=== PATIENT | female | born 1995 | race Caucasian/White ===

== ENCOUNTER 2018-05-09 17:51 | Emergency (ER) | payer OTHER, BC ==
--- NOTE | 2018-05-09 19:30 | PDOC ---
History of Present Illness - General History Source: Patient Exam Limitations: No Limitations - History of Present Illness Initial Comments: 05/09/18 20:19 A portion of this note was documented by scribe services under my direction. I have reviewed the details of the note, within reason, and agree with the documentation. The case summary and management plan written by me. Assessment and plan: This is a 22-year-old female who comes in complaining of 3 months of lymphadenopathy in her neck and groin bilateral. Patient also has 1 month history of a lesion of her left lip. On my exam patient did have some small nontender freely mobile lymphadenopathy of the left side of her neck as well as her groin bilateral left side greater than right. Patient has been with her sexual partner 2 years and denies any history of STDs. Denies any pelvic pain, vaginal discharge. Patient on my exam did not have a pharyngitis. Basic labs were sent and patient will be referred to the clinic for further evaluation and follow-up. <Adan Ocasio I - Last Filed: 05/09/18 20:19> - History of Present Illness Initial Comments: This patient is a 22 year old female with no significant PMHx, who presents with painful lymph nodes and left lower lip lesion. Patient states that her pain in her neck and b/l groin began in February. She states that the lesion on her lip began approx. 1 month ago and reports that it sometimes drains clear sticky liquid and at times it drains yellow colored pus. She states that she was seen at urgent care and finished taking Valtrex 2 weeks ago. She also reports headache and lightheadedness intermittently for the past month. She also reports recent night sweats. She states that she is currently menstruating. She states that she has one steady partner and does not use protection. Denies any fever, runny nose, sore throat, chest pain, shortness of breath, abdominal pain, diarrhea, urinary symptoms. Denies any vaginal discharge. Family Hx: Father - lymphoma and diabetes. PCP: none - will refer to [facility] - [address] Allergies: almonds Social Hx: current everyday smoker?? ROS General: No fevers or chills, no weakness, no weight loss. +night sweats. HEENT: No change in vision. No sore throat, No ear pain Cardiovascular: No chest pain or shortness of breath Respiratory:No cough, or wheezing. Gastrointestinal: No nausea, vomiting, diarrhea or constipation, No rectal bleeding Genitourinary: No dysuria, hematuria, or frequency Musculoskeletal: +neck pain. +b/l groin pain. Neurologic: +headache, no lightheadedness. No loss of consciousness Psychiatric: No depression Skin: +left lower lip lesion w/ purulent drainage. Endocrine: No increased thirst or abnormal weight change Allergic: No skin or latex allergy All other systems reviewed and normal PE GENERAL: The patient is awake, alert, and fully oriented, in no acute distress. HEAD: Normal with no signs of trauma. EYES: Pupils equal, round and reactive to light, extraocular movements intact, sclera anicteric, conjunctiva clear. THROAT: Posterior oropharynx - no errythema, no exudate. Left sided lymphadenopathy - non-tender, freely mobile. Anterior cervical chain of right side - no lymphadenopathy. ABDOMEN/PELVIS: No tenderness EXTREMITIES: B/l small, non tender, freely mobile lymph nodes palpable in groin L>R.Normal range of motion, no edema. NEUROLOGICAL: Normal speech, normal gait. PSYCH: Normal mood, normal affect. SKIN: Left lower lip --> raised lesion with some crusting approx. 3 mm in diameter. No swelling, erythema, or increased warmth of lip or facial tissues in the area. <Kirsty Osorio - Last Filed: 05/09/18 20:52> - General Chief Complaint: Wound Stated Complaint: SWOLLEN LYMPH, LEFT LOWER LIP BUMP Time Seen by Provider: 05/09/18 19:29 Past History - Immunization History TDAP Vaccination: Yes Immunization Up to Date: Yes - Suicide/Smoking/Psychosocial Hx Smoking Status: No Smoking History: Current every day smoker Number of Cigarettes Smoked Daily: 5 'Breaking Loose' booklet given: 11/18/14 Hx Alcohol Use: No <Aadn Ocasio I - Last Filed: 05/09/18 20:19> <Kirsty Osorio - Last Filed: 05/09/18 20:52> - Past Medical History Allergies/Adverse Reactions: Allergies Allergy/AdvReac Type Severity Reaction Status Date / Time almonds Allergy Unknown Uncoded 12/05/12 23:36 Home Medications: Ambulatory Orders NK [No Known Home Medication] 12/01/14 Review of Systems - Review of Systems Comments:: see HPI <Kirsty Osorio - Last Filed: 05/09/18 20:52> *Physical Exam - Physical Exam Comments: see HPI <Kirsty Osorio - Last Filed: 05/09/18 20:52> ED Treatment Course - LABORATORY CBC & Chemistry Diagram: 05/09/18 19:40 05/09/18 19:40 <Adan Ocasio I - Last Filed: 05/09/18 20:19> - LABORATORY CBC & Chemistry Diagram: 05/09/18 19:40 05/09/18 19:40 <Kirsty Osorio - Last Filed: 05/09/18 20:52> *DC/Admit/Observation/Transfer - Discharge Dispostion Decision to Admit order: No <Adan Ocasio I - Last Filed: 05/09/18 20:19> - Attestations Scribe Attestion: 05/09/18 19:47 Documentation prepared by Kirsty Osorio, acting as vp medical for Adan Ocasio MD. <Kirsty Osorio - Last Filed: 05/09/18 20:52> Diagnosis at time of Disposition: Lymphadenopathy, Oral mucosal lesion - Discharge Dispostion Disposition: HOME Condition at time of disposition: Stable - Referrals Referrals: Iban Powell MD [Staff Physician] - - Patient Instructions Additional Instructions: You were given a referral to at our clinic. The phone number is the number for the clinic so when you call the phone number get an appointment with any of the doctors that are available to see you. Return to the emergency department immediately with ANY new, persistent or worsening symptoms. Continue any medications as previously prescribed by your physician. You should follow up with your primary doctor as soon as possible regarding today's emergency department visit. . Please make sure your doctor reviews the results of your emergency evaluation. Thank you for coming to the Emergency Department today for your care. It was a pleasure to see you today. Please note that your evaluation is INCOMPLETE until you follow-up with your doctor.
[2018-05-09 20:05] LABS: BASO % 0.7 % (0-2.0); EOS % 1.6 % (0-4.5); HEMOGLOBIN 11.6 GM/dl (10.7-15.3); LYMPH % 42.8 % (8-40); MCH 25.4 pg (25.7-33.7); MCHC 32.1 g/dl (32.0-36.0); MEAN CELL VOLUME 79.2 fl (80-96); MEAN PLT VOLUME 8.3 fl (7.5-11.1); MONO % 9.8 % (3.8-10.2); NEUT % 45.1 % (42.8-82.8); PLATELET COUNT 210 K/MM3 (134-434); RBC 4.55 M/mm3 (3.60-5.2); RDW 13.2 % (11.6-15.6); WHITE BLOOD COUNT 5.1 K/mm3 (4.0-10.8)
[2018-05-09 20:20] LABS: ALBUMIN 4.1 g/dl (3.5-5.0); ALK PHOS 62 U/L (32-92); ANION GAP 8 MMOL/L (8-16); BILIRUBIN,TOTAL 0.4 mg/dl (0.2-1.0); BLOOD UREA NITROGEN 16 mg/dl (7-18); CALCIUM 8.8 mg/dl (8.4-10.2); CHLORIDE 102 mmol/L (98-107); CO2 24 mmol/L (22-28); CREATININE 0.6 mg/dl (0.6-1.3); GLUCOSE,RANDOM 89 mg/dl (74-106); POTASSIUM 3.5 mmol/L (3.5-5.1); SGOT/AST 29 U/L (10-42); SGPT/ALT 29 U/L (10-40); SODIUM 134 mmol/L (136-145); TOT PROT 7.2 g/dl (6.4-8.3)
== END 2018-05-09 20:29 | disposition home or self-care (01) ==
LOC: FER 17:51
DX: R59.1 Generalized enlarged lymph nodes (principal); K13.70 Unspecified lesions of oral mucosa
CPT/HCPCS: 36415; 80053; 85025; 86663; 99281-25

== ENCOUNTER 2021-07-29 04:50 | Day surgery (SDC) | payer OTHER, BC ==
[2021-07-25 10:46] VITALS: BMI 22.3
[2021-07-29 11:50] LABS: BASO % 0.9 % (0-2.0); EOS % 0.8 % (0-4.5); HEMATOCRIT 35.2 % (32.4-45.2); HEMOGLOBIN 11.5 GM/dL (10.7-15.3); LYMPH % 29.3 % (8-40); MCH 26.1 pg (25.7-33.7); MCHC 32.6 g/dl (32.0-36.0); MEAN PLT VOLUME 8.4 fl (7.5-11.1); MONO % 7.6 % (3.8-10.2); NEUT % 61.4 % (42.8-82.8); PLATELET COUNT 177 10^3/uL (134-434); RDW 14.7 % (11.6-15.6); WHITE BLOOD COUNT 3.7 K/mm3 (4.0-10.0)
[2021-07-29 12:00] LABS: INR 1.15 (0.83-1.09); PROTHROMBIN TIME (PATIENT) 13.2 SEC (9.7-13.0)
[2021-07-29 16:41] VITALS: TEMP 98
[2021-07-29 16:45] VITALS: BP 116/64; PULSE 67
[2021-07-29 17:26] LABS: BF GLUCOSE (CSF ONLY) 51 mg/dL (40-70)
[2021-07-29 17:45] LABS: CSF APPEARANCE CLEAR (CLEAR); CSF COLOR COLORLESS (COLORLESS); CSF WBC 0 mm3 (0-5)
== END 2021-07-29 16:15 | disposition home or self-care (01) ==
LOC: JRADIR 04:50
PROVIDERS: ATTEND Psychiatry & Neurology Neurology
PROC: 009U3ZX Drainage of Spinal Canal, Percutaneous Approach, Diagnostic (ICD-10-PCS; principal; 2021-07-29)
DX: R20.2 Paresthesia of skin (principal)
CPT/HCPCS: 36415; 62272; 81025; 82150; 82784; 82787; 82945; 83873; 83916; 84157; 85025; 85610; 87070; 87205

== ENCOUNTER 2022-06-18 15:18 | Emergency (ER) | payer OTHER ==
[2022-06-18 15:37] VITALS: BP 109/70; PULSE 57; RESP 18; TEMP 98.1; BMI 21.9
[2022-06-18] MEDS ORDERED: DIPHTH,PERTUSS(ACELL),TET 0.5 ML DISP.SYRIN IM ONE ×2 (17:35→17:56)
[2022-06-18] MEDS ORDERED: RABIES IMMUNE GLOBULIN 300 UNITS/1 ML VIAL IM ONE (17:35)
[2022-06-18] MEDS ORDERED: RABIES VACCINE (PCEC)/PF 2.5 UNIT/VIAL IM ONE ×2 (17:35→17:56)
[2022-06-18] MEDS ORDERED: RABIES IMMUNE GLOBULIN 300 UNITS/1 ML VIAL ONE (17:55)
== END 2022-06-18 18:59 | disposition home or self-care (01) ==
LOC: JERFT 15:18
PROC: 3E0234Z Introduction of Serum, Toxoid and Vaccine into Muscle, Percutaneous Approach (ICD-10-PCS; principal; 2022-06-18)
PROC: 3E0234Z Introduction of Serum, Toxoid and Vaccine into Muscle, Percutaneous Approach (ICD-10-PCS; 2022-06-18)
DX: S70.312A Abrasion, left thigh, initial encounter (principal); W54.0XXA Bitten by dog, initial encounter
CPT/HCPCS: 90375; 90471; 90675; 90715; 96372; 99284-25

== ENCOUNTER 2022-06-21 14:48 | Emergency (ER) | payer OTHER ==
[2022-06-21 15:05] VITALS: BP 118/52; PULSE 62; RESP 18; TEMP 98.1; BMI 21.9
[2022-06-21] MEDS ORDERED: RABIES VACCINE (PCEC)/PF 2.5 UNIT/VIAL IM ONE ×2 (15:21→15:37)
== END 2022-06-21 15:57 | disposition home or self-care (01) ==
LOC: JERFT 14:48
PROC: 3E0234Z Introduction of Serum, Toxoid and Vaccine into Muscle, Percutaneous Approach (ICD-10-PCS; principal; 2022-06-21)
DX: Z29.14 Encounter for prophylactic rabies immune globulin (principal)
CPT/HCPCS: 90471; 90675; 99284-25

== ENCOUNTER 2022-06-25 15:10 | Emergency (ER) | payer OTHER ==
[2022-06-25 15:59] VITALS: BP 120/68; PULSE 70; RESP 16; BMI 21.9
[2022-06-25] MEDS ORDERED: RABIES VACCINE (PCEC)/PF 2.5 UNIT/VIAL IM ONE ×2 (16:23→16:25)
[2022-06-25 16:46] VITALS: TEMP 98
== END 2022-06-25 16:53 | disposition home or self-care (01) ==
LOC: JERFT 15:10
PROC: 3E023GC Introduction of Other Therapeutic Substance into Muscle, Percutaneous Approach (ICD-10-PCS; principal; 2022-06-25)
DX: S71.152A Open bite, left thigh, initial encounter (principal); W54.0XXA Bitten by dog, initial encounter; Z20.3 Contact with and (suspected) exposure to rabies
CPT/HCPCS: 90471; 90675; 99283-25

== ENCOUNTER 2022-07-02 16:55 | Emergency (ER) | payer OTHER ==
[2022-07-02 17:08] VITALS: BP 115/73; PULSE 69; RESP 17; TEMP 97.7; BMI 21.9
[2022-07-02] MEDS ORDERED: RABIES VACCINE (PCEC)/PF 2.5 UNIT/VIAL IM ONE ×2 (18:19→18:23)
== END 2022-07-02 18:50 | disposition home or self-care (01) ==
LOC: JER 16:55 → JERFT 16:55
PROC: 3E023GC Introduction of Other Therapeutic Substance into Muscle, Percutaneous Approach (ICD-10-PCS; principal; 2022-07-02)
DX: Z20.3 Contact with and (suspected) exposure to rabies (principal); Z23 Encounter for immunization
CPT/HCPCS: 90471; 90675; 99283-25

== ENCOUNTER 2022-08-21 20:57 | Emergency (ER) | payer OTHER ==
[2022-08-21 21:07] VITALS: BP 113/65; PULSE 67; RESP 16; TEMP 98.7; BMI 21.9
== END 2022-08-21 22:55 | disposition home or self-care (01) ==
LOC: FER 20:57
DX: J02.9 Acute pharyngitis, unspecified (principal)
CPT/HCPCS: 0241U-QW; 71045-TC-FY; 87651; 93005; 99285-25

== ENCOUNTER 2024-03-28 15:31 | Emergency (ER) | payer OTHER ==
[2024-03-28 15:44] VITALS: BP 111/66; PULSE 68; RESP 20; TEMP 99; BMI 24.0
[2024-03-28] MEDS: IBUPROFEN 400 MG TABLET (FP) PO ONE (15:47)
[2024-03-28] MEDS ORDERED: IBUPROFEN 400 MG TABLET (FP) PO ONE (15:48)
[2024-03-28] MEDS ORDERED: IBUPROFEN 100 MG/5 ML UNIT DOSE CUPS ONE (15:50)
[2024-03-28] MEDS ORDERED: METOCLOPRAMIDE HCL INJECTION 10 MG/2 ML VIAL ONE (17:08)
[2024-03-28] MEDS: SODIUM CHLORIDE 0.9% 500 ML INFUS.BAG IV ONE (17:31)
[2024-03-28] MEDS: METOCLOPRAMIDE HCL INJECTION 10 MG/2 ML VIAL IVPB ONE (17:31)
[2024-03-28] MEDS ORDERED: FAMOTIDINE 20 MG/50 ML IVPB 20 MG/50 ML MG IVPB ONE (17:33)
[2024-03-28] MEDS: FAMOTIDINE 20 MG/50 ML IVPB 20 MG/50 ML MG IVPB ONE (17:35)
== END 2024-03-28 18:51 | disposition home or self-care (01) ==
LOC: FER 15:31
PROC: 3E033GC Introduction of Other Therapeutic Substance into Peripheral Vein, Percutaneous Approach (ICD-10-PCS; principal; 2024-03-28)
PROC: 3E033GC Introduction of Other Therapeutic Substance into Peripheral Vein, Percutaneous Approach (ICD-10-PCS; 2024-03-28)
DX: G43.909 Migraine, unspecified, not intractable, without status migrainosus (principal); R10.10 Upper abdominal pain, unspecified
CPT/HCPCS: 84703; 99283-25

== ENCOUNTER 2024-12-11 05:33 | Day surgery (SDC) | payer OTHER ==
[2024-12-08 10:51] VITALS: BMI 24.9
[2024-12-11] MEDS: ceFAZolin SODIUM 1 GM VIAL IVPB ONE
[2024-12-11] MEDS ORDERED: ACETAMINOPHEN 325 MG TABLET (FP) PO PRN (07:51)
[2024-12-11] MEDS ORDERED: IBUPROFEN 400 MG TABLET (FP) PO PRN (07:51)
[2024-12-11] MEDS ORDERED: RIZATRIPTAN 5 MG PO PRN (07:51)
[2024-12-11] MEDS ORDERED: LIDOCAINE HCL/PF 2% SDV 5ML VIAL ONE (08:34)
[2024-12-11] MEDS ORDERED: GLYCOPYRROLATE 0.2 MG/1 ML VIAL ONE (08:34)
[2024-12-11] MEDS ORDERED: SUCCINYLCHOLINE CHLORIDE 200 MG/10 ML SYRINGE ONE (08:34)
[2024-12-11] MEDS ORDERED: METOCLOPRAMIDE HCL INJECTION 10 MG/2 ML VIAL ONE (08:34)
[2024-12-11] MEDS ORDERED: DEXAMETHASONE SOD PHOSPHATE 4 MG/1 ML VIAL ONE (08:34)
[2024-12-11] MEDS ORDERED: ONDANSETRON 4 MG/2 ML VIAL ONE (08:34)
[2024-12-11] MEDS ORDERED: KETOROLAC TROMETHAMINE 30 MG/1 ML VIAL ONE (08:34)
[2024-12-11] MEDS ORDERED: FERROUS GLUCONATE 324 MG TAB (FP) PO SCH (10:00)
[2024-12-11] MEDS ORDERED: ACETAMINOPHEN INJECTION 100 ML ONE (10:51)
[2024-12-11] MEDS ORDERED: MIDAZOLAM HCL 2 MG/2 ML SINGLE DOSE VIAL ONE (10:58)
[2024-12-11] MEDS ORDERED: PROPOFOL 20 ML ONE (11:14)
[2024-12-11] MEDS ORDERED: oxyCODONE HCL 5 MG TABLET PO PRN (11:47)
[2024-12-11] MEDS ORDERED: PROMETHAZINE HCL 25 MG/1 ML VIAL IVPB PRN (11:47)
[2024-12-11] MEDS ORDERED: LACTATED RINGERS SOLUTION 1,000 ML IV SCH (12:00)
[2024-12-11 13:09] VITALS: RESP 18
[2024-12-11 16:17] VITALS: BP 112/61; PULSE 62; TEMP 97.8
== END 2024-12-11 14:05 | disposition home or self-care (01) ==
LOC: JASU-SURG 05:33
PROVIDERS: ATTEND Obstetrics & Gynecology
PROC: 0UDB8ZX Extraction of Endometrium, Via Natural or Artificial Opening Endoscopic, Diagnostic (ICD-10-PCS; principal; 2024-12-11 10:15)
DX: N84.0 Polyp of corpus uteri (principal)
CPT/HCPCS: 88305-TC; 94760; J0131